=== PATIENT | male | born 1945 | race Caucasian/White ===

== ENCOUNTER 2017-12-10 14:51 | Day surgery (SDC) | payer MEDICARE ==
[~2017-12-10] VITALS: Ht 167.6 cm; Wt 122.5 kg
[~2017-12-10 14:51] MED LIST: AMLO5 PO; ATEN25 PO; HYDACE5 PO; LISI20 PO; METF500C PO; METO25ER PO; OLME20 PO; TAMS.4ER PO; TRADJENTA5 MG PO
== END 2017-12-10 16:55 | disposition home or self-care (01) ==
LOC: ORSCSDS 14:51
PROVIDERS: Ophthalmology
PROC: 08RJ3JZ Replacement of Right Lens with Synthetic Substitute, Percutaneous Approach (ICD-10-PCS; principal; 2017-12-10 16:30)
DX: H25.11 Age-related nuclear cataract, right eye (principal); E11.9 Type 2 diabetes mellitus without complications; I10 Essential (primary) hypertension; Z79.84 Long term (current) use of oral hypoglycemic drugs; Z79.899 Other long term (current) drug therapy
CPT/HCPCS: 82947; J2250; J3010; J7040; V2632

== ENCOUNTER → 2018-03-30 | Outpatient (CLI) | payer MEDICARE | END | disposition home or self-care (01) | LOC: LAB SHORT 16:20 → LAB 16:20 | DX: N39.0 Urinary tract infection, site not specified (principal) | CPT/HCPCS: 87086 ==

== ENCOUNTER → 2022-09-05 | Outpatient (CLI) | payer MEDICARE ==
[2022-09-08 21:08] LABS: METANEPHRINE, UR 83 ug/L (Undefined)
== END ==
LOC: LAB SHORT 14:31 → LAB 14:31
PROVIDERS: Otolaryngology
DX: D44.6 Neoplasm of uncertain behavior of carotid body (principal)
CPT/HCPCS: 81050; 83835

== ENCOUNTER 2023-12-18 17:59 | Inpatient (IN) | payer MEDICARE ==
[~2023-12-18] VITALS: Ht 167.6 cm; Wt 111.5 kg
[2023-12-18] VITALS (7 sets, daily range): BP systolic 131–154; BP diastolic 78–115
[~2023-12-18 17:59] MED LIST changes: +GLIP10 PO; +HYDCHL50 PO; +Percocet 5-3251 EACH PO
[2023-12-18 18:35] LABS: BASOPHILS ABSOLUTE AUTO 0.02 K/mm3 (0.00-0.23); BASOPHILS PERCENT AUTO 0 % (0-2); EOSINOPHILS ABSOLUTE AUTO 0.03 K/mm3 (0.00-0.68); EOSINOPHILS PERCENT AUTO 0 % (0-6); Hemoglobin 14.5 g/dL (13.5-17.5); IMMATURE GRAN ABSOLUTE AUTO 0.04 K/mm3 (0.00-0.10); IMMATURE GRAN PERCENT AUTO 1 % (0-1); LYMPHOCYTES ABSOLUTE AUTO 2.23 K/mm3 (0.84-5.20); LYMPHOCYTES PERCENT AUTO 28 % (21-46); MONOCYTES ABSOLUTE AUTO 0.66 K/mm3 (0.16-1.47); MONOCYTES PERCENT AUTO 8 % (4-13); Mean Corpuscular HGB 32.4 pg (26.0-34.0); Mean Corpuscular HGB Conc 34.5 g/dL (31.5-36.5); Mean Corpuscular Volume 94 fL (80-100); Mean Platelet Volume 10.5 fL (9.1-12.4); NEUTROPHILS PERCENT AUTO 63 % (41-73); Platelet Count 237 K/mm3 (150-400); RDW Coefficient Variation 13.2 % (11.7-14.2); RDW Standard Deviation 45.2 fL (35.1-46.3); Red Blood Cell Count 4.48 M/mm3 (4.30-5.90); White Blood Cell Count 8.08 K/mm3 (4.00-11.30)
[2023-12-18 18:47] LABS: Albumin, Blood 2.5 g/dL (3.4-5.0); Albumin/Globulin Ratio 0.6 (0.8-1.8); Bilirubin, Total 0.4 mg/dL (0.1-1.0); Bun/Creatinine Ratio 18.1 (12.0-20.0); Calcium, Blood 8.8 mg/dL (8.5-10.1); Creatinine, Blood 0.83 mg/dL (0.60-1.20); Potassium, Blood 3.8 mmol/L (3.5-5.5); Total Protein, Blood 6.5 g/dL (6.4-8.2)
[2023-12-18 19:38] LABS: Influenza B, PCR NEGATIVE (NEGATIVE); Resp Syncytial Virus, PCR NEGATIVE (NEGATIVE); SARS-Cov-2 (COVID-19) PCR, MMC NEGATIVE (NEGATIVE)
[2023-12-18 20:13] LABS: Influenza A, PCR POSITIVE (NEGATIVE)
[2023-12-18] MEDS ORDERED: CefTRIAXone Sodium 1,000 MG in NS 50 ML IV ONE (20:35)
[2023-12-18] MEDS ORDERED: Albuterol 2.5 MG/3 ML VIAL INH ONE (20:35)
[2023-12-18] MEDS ORDERED: dilTIAZem HCL 125 MG in Dextrose 5% 100 ML IV SCH (20:35)
[2023-12-18] MEDS ORDERED: NS 1,000 ML IV SCH (20:35)
[2023-12-18] MEDS ORDERED: Diltiazem HCl 5 MG / ML 5ML Vial IV ONE (20:35)
[2023-12-18] MEDS ORDERED: Mag Sulfate 1 GM/D5% 100ML 100 ML IV ONE (20:35)
[2023-12-18] MEDS ORDERED: Ipratropium/Albuterol SulF 2.5-0.5MG/3 ML Amp INH PRN (22:10)
[2023-12-18] MEDS ORDERED: Ondansetron HCl 2 MG / ML 2ML Vial IV PRN (22:10)
[2023-12-18] MEDS ORDERED: FLU VACC QS2023-24(6MOS UP)/PF 60 MCG/0.5 ML SYRINGE IM ONE (22:10)
[2023-12-18] MEDS ORDERED: Oseltamivir Phosphate 75 MG Cap PO SCH (22:17)
[2023-12-18] MEDS ORDERED: Potassium Chloride 40 MEQ in NS 250 ML IV ONE (22:20)
[2023-12-18 22:29] LABS: International Normalized Ratio 0.96; Prothrombin Time Results 10.1 Sec (9.7-11.5)
[2023-12-18 22:32] LABS: Magnesium, Blood 1.8 mg/dL (1.6-2.4)
[2023-12-18] MEDS ORDERED: dilTIAZem HCL 30 MG TAB PO SCH (23:00)
[2023-12-18] MEDS ORDERED: Enoxaparin 40 MG/0.4 ML SYR SC SCH (23:00)
[2023-12-18] MEDS ORDERED: Insulin Glargine-Yfgn 100 Unit/mL 3 ML SYR SC SCH (23:00)
[2023-12-19] VITALS (21 sets, daily range): BP systolic 129–176; BP diastolic 67–101
[2023-12-19 04:05] LABS: Source, Urine Clean Catch
[2023-12-19 04:11] LABS: Bilirubin, Urine Neg (Neg); Blood, Urine Neg (Neg); Glucose Qualitative, Urine 4+ (Neg); Ketones, Urine 3+ (Neg); Leukocyte Esterase, Urine Neg (Neg); Nitrite, Urine Neg (Neg); Protein, Urine 1+ (Neg); Urobilinogen, Urine NORM (Normal)
[2023-12-19 04:24] LABS: Appearance, Urine Clear (Clear); Color, Urine Yellow (P-Yellow)
[2023-12-19] MEDS ORDERED: OxyCODONE 5 mg/Acetamin 325 mg TABLET PO PRN (05:30)
--- NOTE | 2023-12-19 06:22 | NUR ---
SHIFT SUMMARY PT ARRIVED TO PCU AT 2215, ARRIVED VIA ER GURTJ. PT A&O X4, COOPERATIVE WITH CARE. PT IS SQUAXIN BUT RESPONDS APPROPRIATELY TO MOST CONVERSATION AND QUESTIONS. PERIODS OF FORGETFULNESS OR CONFUSION NOTED AT TIMES BUT NO ACUTE CHANGES TO MENTATION THIS SHIFT. PT TRANSFERRED VIA SLIDE SHEET, PT VERY WEAK AND DECONDITIONED ALTHOUGH FOLLOW COMMANDS. VS; BP 130 - 150'S, AFIB WITH RATE RANGING INTO 130'S. CARDIZEM GTT INFUSING UNTIL 615 WHEN THIS RN TITRATED OFF D/T HR SUSTAINING IN 90'S. CURRENTLY IN STANDBY AT BEDSIDE. PT DENIES CP/PRESSURE, DIZZINESS, PALPITATIONS, N/V. PT DOES ENDORSE SOB "ESPECIALLY WITH ACTIVITY. THIS RN NOTES NO SOB. PT CURRENTLY BEDREST D/T WEAKNESS. PT HAS OCCASSIONAL PRODUCTIVE COUGH; REPORTS MODERATE, THICK, YELLOW SPUTUM. CBG 402 AT ARRIVAL; COVERAGE PER EMAR. PT TOLERATING PO INTAKE; MOSTLY WATER AND SPRITE ALTHOUGH PT WAS ABLE TO DRINK A CHOCALATE ENSURE AND HE TOLERATED THAT WELL. PT USING URINAL IN BED WITH ASSISTANCE. NO BM THIS SHIFT. PT DOES REPORT "OCCASSIONAL DIARRHEA"; OF NOTE PT HX OF CANCER AND ON CHEMO. PT DOES ENDORSE OCCURS "WITH OR AFTER CHEMO". IVF AND ABX PER EMAR. PT ABLE TO USE CALL LIGHT AND MAKE NEEDS KNOWN. PT IRRITABLE AT TIMES STATES "I AM TIRED" AND "TIRED OF BEING POKED AND BLOOD TAKEN". PT INITIALLY DECLINED AM LABS, BUT LATER WAS AGREEABLE TO IT AFTER EDUCATION PROVIDED AND PT ALLOWED TIME TO REST FOR A WHILE. DR. SANTAMARIA IN TO SEE PT AT BEDSIDE. ORDERS FOR PT/OT EVAL AND TREAT. WILL UPDATE ONCOMING RN
[2023-12-19 06:40] LABS: BASOPHILS ABSOLUTE AUTO 0.03 K/mm3 (0.00-0.23); BASOPHILS PERCENT AUTO 0 % (0-2); EOSINOPHILS ABSOLUTE AUTO 0.02 K/mm3 (0.00-0.68); EOSINOPHILS PERCENT AUTO 0 % (0-6); Hematocrit 38.2 % (37.0-53.0); Hemoglobin 13.2 g/dL (13.5-17.5); IMMATURE GRAN ABSOLUTE AUTO 0.06 K/mm3 (0.00-0.10); IMMATURE GRAN PERCENT AUTO 1 % (0-1); LYMPHOCYTES PERCENT AUTO 20 % (21-46); MONOCYTES ABSOLUTE AUTO 0.67 K/mm3 (0.16-1.47); MONOCYTES PERCENT AUTO 9 % (4-13); Mean Corpuscular HGB 32.6 pg (26.0-34.0); Mean Corpuscular HGB Conc 34.6 g/dL (31.5-36.5); Mean Corpuscular Volume 94 fL (80-100); NEUTROPHILS ABSOLUTE AUTO 5.46 K/mm3 (1.96-9.15); NEUTROPHILS PERCENT AUTO 70 % (41-73); Platelet Count 200 K/mm3 (150-400); RDW Coefficient Variation 13.2 % (11.7-14.2); RDW Standard Deviation 45.7 fL (35.1-46.3); Red Blood Cell Count 4.05 M/mm3 (4.30-5.90); White Blood Cell Count 7.84 K/mm3 (4.00-11.30)
[2023-12-19 07:08] LABS: Albumin, Blood 2.2 g/dL (3.4-5.0); Albumin/Globulin Ratio 0.6 (0.8-1.8); Bilirubin, Total 0.4 mg/dL (0.1-1.0); Bun/Creatinine Ratio 20.9 (12.0-20.0); Creatinine, Blood 0.67 mg/dL (0.60-1.20); Globulin, Blood 3.6 g/dL (2.2-4.0); Potassium, Blood 4.3 mmol/L (3.5-5.5); Total Protein, Blood 5.8 g/dL (6.4-8.2)
[2023-12-19] MEDS ORDERED: Insulin Human Lispro 100 Units/ML 3ML Syringe SC SCH (07:30)
[2023-12-19] MEDS ORDERED: Insulin Glargine-Yfgn 100 Unit/mL 3 ML SYR SC SCH (09:00)
[2023-12-19] MEDS ORDERED: MethylPREDNISolone Sod Succ 125 MG Vial IV SCH (09:00)
[2023-12-19] MEDS ORDERED: Oseltamivir Phosphate 75 MG Cap PO SCH (09:00)
[2023-12-19] MEDS ORDERED: HydroCHLOROthiazide 25 mg Tab PO SCH (09:00)
[2023-12-19] MEDS ORDERED: LevoFLOXacin 750 MG/D5W 150ML 150 ML IV SCH (09:00)
[2023-12-19] MEDS ORDERED: AmLODIPine Besylate 5 MG Tab PO SCH (09:00)
[2023-12-19] MEDS ORDERED: Metoprolol Succinate 50 MG TABCR PO SCH (09:00)
--- NOTE | 2023-12-19 11:00 | NUR ---
AM NOTES; PT ALERT AND ORIENTED X3-4, CAN BE IRRITATED AT TIMES, WAS UPSET ABOUT GETTING CONSISTENT NEEDLE POKES, PT WAS EDUCATED ABOUT CURRENT SITUATION PT SEEMS TO FORGET SOME INFORMATION, SON AT THE BEDSISE WAS RE-EDUCATED TO. PALLIATIVE CARE CONSULTED FOR ADVANCE CARE PLANNING. VITALS HRR PT REMAINED SR AT 80-90'S SINCE THE BEGINNING OF THE SHIFT TACHS UP TO 115 TRENDS DOWN AT REST, SBP 130-150'S, SATS ABOVE 90% ON RA, SOB WITH EXERTION, AFEBRILE. PT ABLE TO WORK WITH PHYSICAL THERAPIST THIS MRONING ABLE TO AMBULATE TO THE BATHROOM VIA FWW AND GAITBLET SBA, GENERALIZED WEAKNESS. CBG WAS ELEVATED AT 400'S THIS MORNING INSULIN DOSE FOR SLIDING SCALE TO MEDIUM, LONG ACTING DOSE TO BID. PT WITH POOR APPETITE OFFERED GLUCERNA THIS MORNING ONLY TOOK A COUPLE SIPS. PT UP IN THE RECLINER SINCE THIS MORNING. DENIES ANY CHEST PAIN/PRESSURE/DISCOMFORT. PT HAS BEEN CALLING APPRPRIATELY, CALL LIGHTS IN REACH WILL CONTINUE TO MONITOR
--- NOTE | 2023-12-19 15:13 | NUR ---
Met with pt and son this morning at bedside. The patient appeared to be alert and oriented. 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 He appeared to be very intent on the conversation with his son, but did state he wouldn't mind if we talked again later. Plan to discuss code status, as well as open a discussion on care planning for the future. The patient stated he's "no spring chicken anymore", and he "knows something will have to change soon".
[2023-12-19] MEDS ORDERED: Polyethylene Glycol 3350 17 gm PO SCH (17:00)
--- NOTE | 2023-12-19 18:38 | NUR ---
PT SUMMARY: SEE PREVIOUS NOTES; NO ACUTE CHANGE SINCE AM NOTES, PT STAYED UP IN THE RECLINER MOST OF THE SHIFT, CALLS APPROPRIATELY, AMBULATES TO [facility] BATHROOM VIA FWW SBA, HAD 2 REPORTED BM. VITALS HAS BEEN STABLE, DENIES CHEST PAIN/PRESSURE. CBG TRENDING DOWN PER MEDIUM SLIDING SCALE COVERAGE, REPORTED NAUSEA MEDICATED X1 WITH ZOFRAN AND WAS EFFECTIVE. PALLIATIVE CARE NURSE WAS ABLE TO TALK TO [facility] SON AND PT ABOUT ADVANCE CARE PLANNING, TO FF-UP IN AM PER LALIT GUERRA. NO OTHER ISSUES FOR THE SHIFT, PT HAS BEEN CALLING APPROPRIATELY, ABLE TO MAKE NEEDS KNOWN, WILL REPORT TO ONCOMING SHIFT
[2023-12-20 00:25] VITALS: BP 129/78
[2023-12-20 04:23] VITALS: BP 150/82
--- NOTE | 2023-12-20 05:10 | NUR ---
SHIFT SUMMARY PT REMAINS A&O X4, NO ACUTE NEURO CHANGES. PT VSS THROUGHOUT SHIFT; SBP 130 - 150, SINUS RHYTHM WITH RATE IN 70'S, REMAINS ON RA WITH SPO2 >91 -94%. PT AFEBRILE. REMAINS FREE OF CP/PRESSURE, DIZZINESS, N/V. PT DOES REPORT BEING "VERY TIRED". PT DID REST MOST OF THE SHIFT BUT AROUSABLE DURING CARE OR WHEN AWAKENED. PT STILL REPORTING SOB WITH ACTIVITY BUT "NOT SO MUCH AT REST". THIS RN DOES NOTE MILD SOB DURING CONVERSATION BUT SPO2 MAINTAINS. PT CONTINUES TO HAVE OCCASSIONAL, MOIST COUGH AND IS CLEARING INDEPENDENTLY. PT REPOSITIONED Q2 OR PRN, PT ABLE TO PARTICIPATE AND ASSIST WITH ROLLING. NO BM THIS SHIFT. PT HAD 2 INCONTINENT VOIDS THIS SHIFT. NO ACUTE CHANGES WITH PT THIS SHIFT. CALL LIGHT IN REACH AND WILL UPDATE ONCOMING RN. OF NOTE, PT CONTINUES TO ASK ABOUT "PSA LEVELS FROM BLOODWORK" FOR CANCER DOCTOR AND WAS TOLD IN ER THAT IT WOULD BE DRAWN. THIS RN WILL PASS ALONG TO AM SHIFT. THIS RN EXPLAINED TO PT THAT NO RESULTS OR TESTS FOR PSA HAVE BEEN COMPLETED DURING THIS HOSPITAL STAY.
[2023-12-20 05:27] LABS: Bun/Creatinine Ratio 17.1 (12.0-20.0); Calcium, Blood 8.6 mg/dL (8.5-10.1); Creatinine, Blood 0.82 mg/dL (0.60-1.20); Potassium, Blood 3.6 mmol/L (3.5-5.5); Thyroid Stimulating Hormone 2.45 uIU/mL (0.360-4.800)
[2023-12-20] MEDS ORDERED: Insulin Human Lispro 100 Units/ML 3ML Syringe SC SCH ×2 (07:30→16:30)
[2023-12-20 07:45] VITALS: BP 148/87
[2023-12-20] MEDS ORDERED: dilTIAZem HCL 120 MG CAP.CD PO SCH (09:00)
--- NOTE | 2023-12-20 10:00 | NUR ---
RT PUT PT ON 2L O2 FOR DESAT INTO 80S WHILE TALKING TO FAMILY MEMBER. DR BARRY CAME TO SEE PT AND IS AWARE OF NEW O2. HOME O2 EVAL ORDERED AND RT AWARE DUE TO POSSIBLE DC TODAY.
--- NOTE | 2023-12-20 10:38 | NUR ---
DR BARRY CALLED AND STATES SHE CHANGED HER MIND ABOUT DISCHARGING DUE TO OXYGEN USE AND PT AND FAMILY CONTINUED TO SAY HOW UNCOMFORTABLE THEY WERE WITH THE IDEA SINCE THEY ARE ALL SICK WITH FEVERS AND PT FALLS FREQUENTLY AND NO ONE WOULD BE AVAILABLE TO HELP HIM IF HE FELL AT HOME. PT NOW MEDICAL WITHOUT TELE. NECKTIE MAKER, RT AND CARE MANAGEMENT AWARE
--- NOTE | 2023-12-20 11:49 | NUR ---
CALL TO DR BARRY TO REPORT AFTERNOON CBG. INSTRUCTS TO GIVE EXTRA 4 UNITS SHORT ACTING INSULIN. ECHO AT BEDSIDE AT THIS TIME.
[2023-12-20 16:18] VITALS: BP 121/69
[2023-12-20] MEDS ORDERED: Furosemide 10 MG / ML 2ML Vial IV ONE (16:30)
--- NOTE | 2023-12-20 16:30 | NUR ---
PT ASKING FOR PSA TO BE DONE PRIOR TO DISCHARGE. CALL TO DR BARRY TO ASK FOR ORDERS. NO FURTHER NEEDS AT THIS TIME. PT RESTING IN CHAIR WITH CALL LIGHT IN REACH
--- NOTE | 2023-12-20 17:50 | NUR ---
SHIFT SUMMARY: PT WILL POSSIBLY DISCHARGE TOMORROW. UP TO CHAIR PART OF SHIFT. WILL NEED HOME O2 EVALUATION PRIOR TO DC DUE TO BEING PLACED ON 3L O2 BY RT. NO ACUTE NEEDS OR CONCERNS AT THIS TIME. CALL LIGHT IN REACH
--- NOTE | 2023-12-20 18:05 | NUR ---
Met with pt again today, he declined to discuss POLST. He states he's going home tomorrow. Spoke with his Gini this evening, and she is suprised he wouldn't discuss it, stating they have discussed it for years, and both wish to be DNR. However, it's possible being so sick has "rattled" him as Gini said. She states she'll make sure they both fill them out, and return to PCP office and hospital.
[2023-12-20 19:45] VITALS: BP 131/71
[2023-12-20] MEDS ORDERED: Insulin Glargine-Yfgn 100 Unit/mL 3 ML SYR SC SCH (21:00)
[2023-12-21 05:06] VITALS: BP 128/84
[2023-12-21 05:06] LABS: Anion Gap 4 mmol/L (6-16); Blood Urea Nitrogen 16 mg/dL (8-24); Bun/Creatinine Ratio 18.4 (12.0-20.0); CO2, Blood 31 mmol/L (21-32); Calcium, Blood 8.3 mg/dL (8.5-10.1); Chloride, Blood 102 mmol/L (98-108); Creatinine, Blood 0.87 mg/dL (0.60-1.20); Glomerular Filtration Rate 88 (60-); Glucose, Blood 189 mg/dL (70-99); Potassium, Blood 3.6 mmol/L (3.5-5.5); Sodium, Blood 137 mmol/L (136-145)
--- NOTE | 2023-12-21 06:00 | NUR ---
SUMMARY: PT A/OX4, CALLS APPROPRIATE TO SPECIFY NEEDS AND IS PLEASANT AND COOPERATIVE W/CARE. LS WERE COARS BUT PT WAS ABLE TO COUGH TO CLEAR SECRETIONS AND O2 TITRATED DOWN TO 1L TO MAINTAIN SPO2 >93%. HE REMAINS IN DROPLET ISO FOR FLU(+) W/TAMIFLU RECIEVED PER EMAR. PT REPORTS GENERAL ACHES AND PAINS BUT DENIED NEEDING PRN PERCOCET. HE'S SBA W/FWW AND USED URINAL AD CRUZITO. HE HAS SOME URGE INCONTINENCE W/BRIEF CHANGED PRN. PT IS POSSIBLE D/C TODAY PENDING HOME O2 EVAL AND RESULTS OF PSA LAB. NO ACUTE CHANGES, VSS AND AFEBRILE. WCTM AND REPORT TO DAY RN.
--- NOTE | 2023-12-21 08:00 | NUR ---
INITIAL ASSESSMENT: Patient is alert and oriented x4, he reports chronic neuropathy in his feet. He denies pain at this time. HRR, VSS. LS DIM in the bases, biox is mid 90s on 1L via nc, this RN titrated him to RA-his saturations remained in the low 90s. He reports a PC but does not know the color. BT+, he declined the Miralax this AM as he states he is having loose stools. PPP. He has some light bruising to the bridge of his nose and under his eyes, he states this is from his multiple falls at home prior to admission. He has some scattered scabs to the back of his left arm. He is OOB to the chair for breakfast with minimal assistance and a FWW. He denies other needs at this time. Call light in reach.
[2023-12-21 08:08] VITALS: BP 133/73
[2023-12-21] MEDS ORDERED: OSEL75CA PO (13:18)
[2023-12-21] MEDS ORDERED: DILT120 PO (13:18)
[2023-12-21] MEDS ORDERED: ALBU90OI INH (13:19)
[2023-12-21] MEDS ORDERED: MIRALAX17 GM PO (13:19)
[2023-12-21] MEDS ORDERED: LEVO750 PO (13:20)
[2023-12-21] MEDS ORDERED: ASPI81CH PO (13:20)
[2023-12-21] MEDS ORDERED: GUAI600T33 PO (13:20)
--- NOTE | 2023-12-21 13:30 | NUR ---
DISCHARGE: Patient has been OOB to the chair, his is at the bedside. He was able to shower and does not qualify for home oxygen. His prescriptions were faxed to [facility]. Him and his verbalize understanding of discharge instructions. He is discharged to home with his via .
== END 2023-12-21 13:57 | disposition home health service (06) | DRG 871 ==
LOC: ER 17:59 → PCU 20:41
PROVIDERS: Emergency Medicine; Internal Medicine; ADMIT Internal Medicine
DX: A41.89 Other specified sepsis (principal); J10.00 Influenza due to other identified influenza virus with unspecified type of pneumonia; J96.01 Acute respiratory failure with hypoxia; C79.51 Secondary malignant neoplasm of bone; I48.91 Unspecified atrial fibrillation; R29.6 Repeated falls; E11.65 Type 2 diabetes mellitus with hyperglycemia; C61 Malignant neoplasm of prostate; S00.31XA Abrasion of nose, initial encounter; S00.81XA Abrasion of other part of head, initial encounter; W18.30XA Fall on same level, unspecified, initial encounter; M19.90 Unspecified osteoarthritis, unspecified site; I10 Essential (primary) hypertension; Z85.841 Personal history of malignant neoplasm of brain; Z79.84 Long term (current) use of oral hypoglycemic drugs; Z11.52 Encounter for screening for COVID-19; Z28.21 Immunization not carried out because of patient refusal
CPT/HCPCS: 0241U; 36415; 71045; 80048; 80053; 82947; 83036; 83735; 83880; 84145; 84443; 84484; 85025; 85610; 93005; 93010; 93306; 94640; 94664; 94760; 94761; 94762; 96365; 96375; 97110; 97112; 97162; 99285-25; A9270; G0103; J0696; J1650; J1815; J1940; J1956; J2405; J2930; J3475; J3480; J7030; J7050

== ENCOUNTER → 2024-05-18 | Outpatient (CLI) | payer MEDICARE ==
[~2024-05-18] MED LIST changes: +ALBU90OI INH; +ASPI81CH PO; +Aspir 8181 MG PO; +BASAGLAR K100 UNIT/1 SC; +CEFD300 PO; +CEFP200 PO; +DILAUDID1 MG/1 M1 PO; +DILT120 PO; +DOXY100 PO; +ELIQUIS5 M2 PO; +ELIQUIS5 M3 PO; +FENTANYL1 EA10 TOP; +Fleet Enema132 ML PR; +GABA100; +GABA100 PO; +GUAI600T33 PO; +HYDMOR2 PO; +HYDROCODONE-AC1 EA19 PO; +LEVO750 PO; +MIRALAX17 GM PO; +ONELAX10 MG PR; +OSEL75CA PO; +OXAYDO5 M1 PO; +Prednisone10 MG PO; +TAMS.4ER; +TRANSDERM-SCOP1 EA13; +TRANSDERM-SCOP1 EA13 TD; +VISBIOME 112.51 EACH PO
[2024-05-18 13:12] LABS: Source, Urine Clean Catch
[2024-05-18 18:52] LABS: Appearance, Urine Hazy (Clear); Bilirubin, Urine Neg (Neg); Blood, Urine 4+ (Neg); Color, Urine Yellow (P-Yellow); Glucose Qualitative, Urine 1+ (Neg); Ketones, Urine Neg (Neg); Leukocyte Esterase, Urine 2+ (Neg); Nitrite, Urine Neg (Neg); Protein, Urine 1+ (Neg); Urobilinogen, Urine NORM (Normal)
[2024-05-18 19:08] LABS: Red Blood Cells, Urine 25-50 /hpf (0-2); White Blood Cells, Urine 25-50 /hpf (0-5)
[2024-05-18 19:09] LABS: Amorphous Light (0-Heavy); Bacteria Many /hpf; Mucus Light (0-Heavy); Squamous Epithelial Cells Few /hpf (Few); Transitional Epithelial Cells Rare /hpf (0-Rare); Yeast/Fungi Urine Many /hpf
== END | disposition home or self-care (01) ==
LOC: LAB 13:11 → LAB SHORT 13:11
PROVIDERS: Nurse Practitioner Family
DX: N18.4 Chronic kidney disease, stage 4 (severe) (principal); R30.9 Painful micturition, unspecified; R32 Unspecified urinary incontinence
CPT/HCPCS: 81001; 87086